=== PATIENT | female | born 1985 | race Hispanic/Latino ===

== ENCOUNTER 2019-07-16 11:59 | Emergency (ER) | payer SELFPAY ==
--- NOTE | 2019-07-16 12:15 | Emergency Department Report ---
Chief Complaint: Extremity Injury, Lower Stated Complaint: DIABETIC, PAIN IN FEET Time Seen by Provider: 07/16/19 12:03 - HPI History of Present Illness: pt has a hx of DM and RA she is on metformin 1000mg BID not on any medication for the RA discomfort with ambulation but still ambulatory states she has bilateral feet pain, occasionally feels tingling in the feet saw her doctor a month ago, states all of her lab work was normal, states her kidney function was normal at that time no SOB no CP no fever normal bilateral feet exam neurovasculalry intact no skin changes no signs of ulcerations normal webs of the feet no edema no calf ttp FROM of the BL ankles, feet, and toes no erythema, no increased warmth no deformities Patient has no signs of septic joint, gout, no acute traumatic injury, no signs of DVT Symptoms most likely related to diabetic neuropathy versus arthritis BG is stable in triage at 181 vitals with elevated blood pressure otherwise normal Patient is not having any symptoms at all related to her blood pressure Discussed with patient to keep a blood pressure log, eat a low-sodium diet, incorporate daily exercise Discussed for her to follow-up with her PCP to see if she needs medication management Will not place patient on blood pressure medication after one abnormal reading today Medical screening examination performed and there is no threat to life or limb at this time Will have patient follow-up with a primary care physician Discussed strict return precautions with patient in detail MSE screening note: Focused history and physical exam performed. ED Disposition for MSE Clinical Impression: Bilateral foot pain, Tingling of both feet, Elevated blood pressure reading Disposition: MED SCREENING EXAM-LEFT Is pt being admited?: No Does the pt Need Aspirin: No Condition: Stable Instructions: Diabetic Neuropathy (ED), Paresthesia (ED) Additional Instructions: please increase your water intake. may take tylenol or ibuprofen for discomfort. eat a low sodium diet. incorporate 30 minutes of daily exercise. please discuss this pain/tingling with your primary care doctor, could be related to diabetic neuropathy. please get an at home blood pressure cuff and take your blood pressure three times a day and keep a log and take this to your primary care doctor. return to the emergency room for any new or worsening symptoms. Referrals: LAMINE VILLELA MD [Staff Physician] - 3-5 Days [facility] [Provider Group] - 3-5 Days [facility] [Provider Group] - 3-5 Days Time of Disposition: 12:14 Print Language: KHMER
[2019-07-16 12:16] VITALS: BP 170/109
== END 2019-07-16 13:25 | disposition left against medical advice (07) ==
LOC: ED 11:59
DX: M79.672 Pain in left foot (principal); M79.671 Pain in right foot; R20.2 Paresthesia of skin; R03.0 Elevated blood-pressure reading, without diagnosis of hypertension; E11.9 Type 2 diabetes mellitus without complications; M06.9 Rheumatoid arthritis, unspecified; Z98.890 Other specified postprocedural states; Z90.89 Acquired absence of other organs; Z91.018 Allergy to other foods
CPT/HCPCS: 82962; 99282